=== PATIENT | male | born 1985 | race Caucasian/White ===

== ENCOUNTER 2019-03-12 14:48 | Emergency (ER) | payer OTHER ==
[2019-03-12] MEDS ORDERED: HYDROmorphone 1 MG/ML Syringe IM ONE (15:22)
[2019-03-12] MEDS ORDERED: Dexamethasone 10 MG/ML SDV IM ONE (15:25)
--- NOTE | 2019-03-12 15:36 | EDM.PDOC ---
ED HPI GENERAL MEDICAL PROBLEM - General Chief Complaint: Back Pain or Injury Stated Complaint: BACK PAIN Time Seen by Provider: 03/12/19 14:53 Source of Information: Reports: Patient, RN Notes Reviewed History Limitations: Reports: No Limitations - History of Present Illness INITIAL COMMENTS - FREE TEXT/NARRATIVE: Patient is a 33-year-old male who presents to the ED for the evaluation of a lower back injury. Patient states that he has a prior back fusion surgery done in January 2016, and struggles chronically with back pain. He states however on Thursday he was at work and ended up falling down, but he landed on his knees which louie his back at this time. He has noticed increased pain from his normal pain now with radiation down the left leg as well. Patient states he recently moved here this summer from [place] for a job in the [employer]. He notes that he takes 30 mg oxycodone up to 3 times a day for his back pain. He denies any urinary or bowel issues, but does have some numbness and tingling that feels like pins and needles down his left leg. He notes that bending and twisting motions makes the pain worse. Lower Back Pain Score (Numeric/FACES): 9 - Related Data Allergies Allergy/AdvReac Type Severity Reaction Status Date / Time codeine Allergy Vomiting Verified 03/12/19 14:52 Penicillins Allergy Vomiting Verified 03/12/19 14:52 Home Meds: Home Meds Lisinopril/Hydrochlorothiazide [Lisinopril-Hctz 10-12.5 mg Tab] 1 tab PO DAILY 01/16/19 [History] oxyCODONE 30 mg PO ASDIRECTED 01/16/19 [History] predniSONE [Deltasone] 20 mg PO ASDIRECTED #15 tablet 03/12/19 [Rx] Past Medical History Cardiovascular History: Reports: Hypertension Musculoskeletal History: Reports: Back Pain, Chronic, Other (See Below) Other Musculoskeletal History: back fusion surgery in 2016 - Past Surgical History GI Surgical History: Reports: Appendectomy, Cholecystectomy Other Neurological Surgeries/Procedures: Fusion L4-S1 Social & Family History - Caffeine Use Caffeine Use: Reports: None - Recreational Drug Use Recreational Drug Use: No ED ROS GENERAL - Review of Systems Review Of Systems: See Below Constitutional: Reports: No Symptoms HEENT: Reports: No Symptoms Respiratory: Reports: No Symptoms Cardiovascular: Reports: No Symptoms Endocrine: Reports: No Symptoms GI/Abdominal: Reports: No Symptoms : Reports: No Symptoms Musculoskeletal: Reports: Back Pain, Leg Pain (left leg pain) Skin: Reports: Bruising (bilateral anterior knee surfaces) Neurological: Reports: Numbness (down L leg), Tingling (down L leg). Denies: Difficulty Walking Psychiatric: Reports: No Symptoms Hematologic/Lymphatic: Reports: No Symptoms Immunologic: Reports: No Symptoms ED EXAM,LOWER BACK PAIN/INJURY - Physical Exam Exam: See Below Exam Limited By: No Limitations General Appearance: Alert, WD/WN, No Apparent Distress Respiratory/Chest: No Respiratory Distress, Lungs Clear, Normal Breath Sounds, No Accessory Muscle Use, Chest Non-Tender Cardiovascular: Normal Peripheral Pulses, Regular Rate, Rhythm, No Murmur GI/Abdominal: Normal Bowel Sounds, Soft, Non-Tender, No Distention, No Mass Back Exam: Normal Inspection, Decreased Range of Motion (d/t pain) Extremities: Normal Inspection, Normal Capillary Refill Neurological: Alert, Normal Mood/Affect, Normal Dorsiflexion, Normal Plantar Flexion, Oriented x 3, Straight Leg Raise (L). No: Straight Leg Raise (R) Psychiatric: Normal Affect, Normal Mood Skin Exam: Warm, Dry, Intact, Normal Color, No Rash Course - Vital Signs Last Recorded V/S: Last Vital Signs Temp 97.1 F 03/12/19 14:53 Pulse 73 03/12/19 14:53 Resp 16 03/12/19 14:53 BP Pulse Ox 100 03/12/19 14:53 - Orders/Labs/Meds Orders: Active Orders 24 hr Category Date Time Status Lumbar Spine 2 or 3V [CR] Stat Exams 03/12/19 15:23 Taken Meds: Medications Discontinued Medications Generic Name Dose Route Start Last Admin Trade Name Ramyq PRN Reason Stop Dose Admin Dexamethasone 10 mg 03/12/19 15:25 03/12/19 15:53 Dexamethasone IM 03/12/19 15:26 10 mg ONETIME ONE Administration Hydromorphone HCl 1 mg 03/12/19 15:22 03/12/19 15:53 Dilaudid IM 03/12/19 15:23 1 mg ONETIME ONE Administration - Re-Assessments/Exams Free Text/Narrative Re-Assessment/Exam: 03/12/19 16:15 Patient presents to the ED for evaluation of lower back pain. It is suspicious for sciatica component in nature as an exacerbation on top of his chronic back pain. He notes that he his possibly running low on his oxycodone medication he states that he is trying to get in with a provider in [place], but they are reviewing his records to see if they will take him for a patient. I did check his prescription history, his last prescription that he was getting for oxycodone 30 mg was from a doctor in [place] on 02/17/19, although he has filled scripts with different providers in [facility], throughout the summer. I will likely send the patient home with a burst of prednisone, recommendation to take his oxycodone as prescribed, and follow up with the providers in [place] on Thursday morning. Departure - Departure Time of Disposition: 16:58 Disposition: Home, Self-Care 01 Condition: Fair Clinical Impression: Low back pain Qualifiers: Chronicity: chronic Back pain laterality: left Sciatica presence: with sciatica Sciatica laterality: sciatica of left side Qualified Code(s): M54.42 - Lumbago with sciatica, left side - Discharge Information *PRESCRIPTION DRUG MONITORING PROGRAM REVIEWED*: Yes *COPY OF PRESCRIPTION DRUG MONITORING REPORT IN PATIENT JASWINDER: No Prescriptions: predniSONE [Deltasone] 20 mg PO ASDIRECTED #15 tablet Instructions: What You Need to Know About Chronic Back Pain, Chronic Back Pain , [id number] Referrals: PCP,Not In Area [Primary Care Provider] - Forms: ED Department Discharge Additional Instructions: You were evaluated in the ED today for your lower back pain. Your x-ray did not demonstrate any sort of acute fracture or bony abnormality at or near the site of the previous fixation. Your pain is consistent with a sciatic component. Treatment for this is steroids to reduce inflammation of the sciatic nerve. You will be placed on a prednisone burst for this, please take as directed. Please take your oxycodone as previously prescribed for back pain. You will need to call to the clinic in [place] on Thursday to talk with a provider that will be able to provide you with further services. Please return to the ED if her symptoms change or worsen. - My Orders Last 24 Hours: My Active Orders 03/12/19 15:23 Lumbar Spine 2 or 3V [CR] Stat - Assessment/Plan Last 24 Hours: My Active Orders 03/12/19 15:23 Lumbar Spine 2 or 3V [CR] Stat
--- NOTE | 2019-03-14 07:22 | CR ---
Lumbar spine: AP, lateral and cone-down lateral views were obtained of the lumbar spine. Disc surgery noted at L5-S1. Transpedicle screws are also noted at L5-S1. Disc spaces otherwise are preserved. Slight endplate osteophytes are noted within the lower thoracic spine. Pedicles are intact. No subluxation or fracture is seen. Previous cholecystectomy is noted. Impression: 1. Previous surgery. 2. Other findings believed to be incidental. Diagnostic code #2
== END 2019-03-12 17:18 | disposition home or self-care (01) ==
LOC: JD.ED 14:48
DX: M54.42 Lumbago with sciatica, left side (principal); I10 Essential (primary) hypertension; Z88.0 Allergy status to penicillin; Z88.5 Allergy status to narcotic agent; Z79.899 Other long term (current) drug therapy
CPT/HCPCS: 72100; 96372; 99283; J1100; J1170